=== PATIENT | male | born 2000 | race Caucasian/White ===

== ENCOUNTER 2020-09-14 12:01 | Emergency (ER) | payer OTHER ==
[~2020-09-14] VITALS: Ht 180.3 cm; Wt 64.5 kg
[2020-09-14 12:02] VITALS: BP 113/76
--- NOTE | 2020-09-14 13:28 | REP ---
INDICATION: trauma. COMPARISON: None. TECHNIQUE: Four views FINDINGS: Distal tibia and fibular without fracture or focal lesion. There is soft tissue swelling about the anteromedial aspect of the ankle. No avulsion or soft tissue calcifications adjacent to the ankle. Mortise joint is symmetric and preserved. There is no talar dome osteochondral defect. The subtalar joint is intact. No heel spurs. Talonavicular, calcaneocuboid and visible tarsal and metatarsal joints included on the study were unremarkable. IMPRESSION: 1. Soft tissue swelling anteromedial aspect of the ankle without fracture, avulsion, disruption of the mortise joint, heel spurs or talar dome osteochondral defect. <Electronically signed by Barney Bedolla > 09/14/20 [id number]
== END 2020-09-14 13:46 | disposition home or self-care (01) ==
LOC: M ED 12:01
DX: S93.402A Sprain of unspecified ligament of left ankle, initial encounter (principal); S90.512A Abrasion, left ankle, initial encounter; X58.XXXA Exposure to other specified factors, initial encounter; Y92.89 Other specified places as the place of occurrence of the external cause; F17.210 Nicotine dependence, cigarettes, uncomplicated